=== PATIENT | male | born 1990 | race Caucasian/White ===

== ENCOUNTER → 2017-04-22 11:55 | Emergency (ER) | payer SELFPAY ==
[2017-04-22 12:33] VITALS: BP 136/65
--- NOTE | 2017-04-23 19:22 | ED ---
Skin Complaint - HPI Summary HPI Summary: Pt here w/ request for return to work. Had sutures placed > 10 days ago in Lt forearm from injury at work - removed himself and used a jackhammer the following day - wound remains closed and w/o pain. Denies redness, swelling, drainage, streaking, pain, fever, chills. - History of Current Complaint Chief Complaint: EDLacSutureRecheck Stated Complaint: LAC RECHECK Hx Obtained From: Patient Pain Intensity: 0 Pain Scale Used: 0-10 Numeric - Allergy/Home Medications Allergies/Adverse Reactions: Allergies Allergy/AdvReac Type Severity Reaction Status Date / Time No Known Allergies Allergy Verified 04/22/17 12:00 PMH/Surg Hx/FS Hx/Imm Hx Previously Healthy: Yes Endocrine/Hematology History: Denies: Hx Anticoagulant Therapy Cardiovascular History: Denies: Hx Hypertension Infectious Disease History: No Infectious Disease History: Denies: Traveled Outside the [place] in Last 30 Days - Family History Known Family History: Negative: Cardiac Disease - Social History Occupation: Employed Full-time - construction Lives: With Family Alcohol Use: None Alcohol Amount: vivitrol Hx Substance Use: No Substance Use Type: Reports: None Hx Tobacco Use: Yes Smoking Status (MU): Current Every Day Smoker Review of Systems Constitutional: Negative Negative: Fever, Chills Musculoskeletal: Negative Negative: Arthralgia, Myalgia Skin: Other - see HPI Neurological: Negative Positive: Paresthesia - mild paresthesia in area of cut - otherwise, full sensation and no weakness. Negative: Headache, Weakness, Numbness Psychological: Normal All Other Systems Reviewed And Are Negative: Yes Physical Exam Triage Information Reviewed: Yes Vital Signs On Initial Exam: Initial Vitals Temp Pulse Resp BP Pulse Ox 97.8 F 73 16 136/65 98 04/22/17 12:01 04/22/17 12:01 04/22/17 12:01 04/22/17 12:01 04/22/17 12:01 Vital Signs Reviewed: Yes Appearance: Positive: Well-Appearing, No Pain Distress, Well-Nourished Skin: Positive: Warm, Dry - healed linear wound over Lt forearm (volar aspect) - no swelling, no drainage, no edema - NTTP Head/Face: Positive: Normal Head/Face Inspection ENT: Positive: Hearing grossly normal Respiratory/Lung Sounds: Positive: Breath Sounds Present Cardiovascular: Positive: Normal, Pulses are Symmetrical in both Upper and Lower Extremities Musculoskeletal: Positive: Normal, Strength/ROM Intact Neurological: Positive: Normal, Sensory/Motor Intact, Alert, Oriented to Person Place, Time, CN Intact II-III Psychiatric: Positive: Normal Diagnostics - Vital Signs Vital Signs Temp Pulse Resp BP Pulse Ox 04/22/17 12:02 97.8 F 73 16 136/65 98 04/22/17 12:01 97.8 F 73 16 136/65 98 - Laboratory Lab Statement: Any lab studies that have been ordered have been reviewed, and results considered in the medical decision making process. Course/Dx - Course Course Of Treatment: Wound appears healed - sutures are already moved. May return to work. - Diagnoses Provider Diagnoses: Encounter for wound re-check Discharge - Discharge Plan Condition: Stable Disposition: HOME Referrals: No Primary Care Phys,NOPCP [Primary Care Provider] - Additional Instructions: Wound healing well - no further care required. May return to work w/o restrictions.
== END | disposition home or self-care (01) ==
LOC: ED 11:55
DX: R20.9 Unspecified disturbances of skin sensation (principal); F17.210 Nicotine dependence, cigarettes, uncomplicated; S50.912D Unspecified superficial injury of left forearm, subsequent encounter; X58.XXXD Exposure to other specified factors, subsequent encounter
CPT/HCPCS: 99281